=== PATIENT | male | born 1940 | race Caucasian/White ===

== ENCOUNTER 2017-11-17 13:21 | Inpatient (IN) | payer MEDICARE ==
[~2017-11-17] VITALS: Ht 182.9 cm; Wt 115.7 kg
[~2017-11-17 13:21] MED LIST: LASIX20 MG PO; NEURONTIN300 MG PO; Z RANITIDINE HCL PO; Z.0.ASPIRIN CHEW81 M; Z.0.BENTYL20 MG PO; Z.0.CRESTOR10 MG PO; Z.0.DIOVAN160 MG PO; Z.0.FLAGYL500 MG PO; Z.0.LASIX20 MG PO; Z.0.LEVAQUIN500 MG PO; Z.0.NEURONTIN300 MG PO; Z.0.PLAVIX75 MG PO; Z.0.SYNTHROID100 MCG PO; Z.0.TOPROL XL25 MG PO; [UNRECOGNIZED DRUG - OTHER]; [UNRECOGNIZED DRUG - OTHER] PO; [UNRECOGNIZED DRUG - OTHER] PO
--- OUTSIDE RECORDS SUMMARY | 2017-11-17 13:25 | XMS REPORT | Clinical Summary ---
Author Author [facility] Address Unknown Phone Unavailable Care Team Providers Care Electrical Worker Name Role Phone Brendan Vicente MD PCP Allergies No Known Allergies Current Medications Prescription Sig. Disp. Refills Start End Date Status Date pantoprazole (PROTONIX) Take 40 mg by mouth every 0 05/06/20 Active 40 MG EC tablet morning. 17 triamcinolone (KENALOG) Apply 1 application Active 0.1 % cream topically 2 (two) times a day. clobetasol 0.05 % lotion Apply 1 application Active topically as needed. folic acid 2.5 mg + B6 25 Take 1 tablet by mouth Active mg + B12 2 mg (FOLBIC) daily. 2.5-25-2 mg tablet levothyroxine (SYNTHROID, Take 100 mcg by mouth Active LEVOXYL) 100 mcg tablet daily. aspirin (ECOTRIN) 81 MG Take 81 mg by mouth 2 Active enteric coated tablet (two) times a day. AVOBENZONE/OCTOCRYLENE Apply 1 application Active (CETAPHIL DAILY FACIAL topically daily. TOP) salicylic acid (CLEARASIL Apply topically daily. Active DAILY CLEAR) 1 % pads, medicated coenzyme Q10 (COQ-10) 100 Take 200 mg by mouth Active mg capsule daily. emollient combination Apply 1 application Active no.77 (DERMEND) cream topically as needed. GLUC/CHND/OM3/DHA/EPA/FIS Take 1 tablet by mouth 2 Active H/STR (GLUCOSAMINE (two) times a day. CHONDROITIN PLUS ORAL) cholecalciferol, vitamin Take 1,000 Units by mouth Active D3, (VITAMIN D3) 1,000 daily. unit capsule amitriptyline (ELAVIL) 10 Take 10 mg by mouth Active MG tablet nightly. gabapentin (NEURONTIN) 10/18/19 Active 600 mg tablet 18 clopidogrel (PLAVIX) 75 04/22/20 Active mg tablet 17 diazePAM (VALIUM) 5 MG Take 5 mg by mouth once 1 04/26/20 Active tablet daily. 17 dicyclomine (BENTYL) 10 TAKE 1 CAPSULE BY MOUTH 2 05/24/20 Active MG capsule EVERY 4 TO 6 HOURS 17 NEEDED DULoxetine (CYMBALTA) 30 04/29/20 Active MG capsule 17 furosemide (LASIX) 20 mg 04/22/20 Active tablet 17 metoprolol succinate XL Take 50 mg by mouth once 3 03/19/20 Active (TOPROL-XL) 50 mg 24 hr daily. 17 tablet rosuvastatin (CRESTOR) 20 TAKE ONE TABLET BY MOUTH 2 03/19/20 Active MG tablet NIGHTLY AT BEDTIME RETURN 17 TO OFFICE FOR LABS sertraline (ZOLOFT) 25 MG TAKE 1 TABLET BY MOUTH 0 04/10/20 Active tablet EVERY DAY FOR 1 WEEK , 17 THEN TAKE 2 TABLETS BY MOUTH EVERY DAY tamsulosin (FLOMAX) 0.4 04/22/20 Active mg capsule,extended 17 release 24hr valsartan (DIOVAN) 160 MG Take 80 mg by mouth 2 2 04/22/20 Active tablet (two) times a day. 17 sucralfate (CARAFATE) 1 Take 1 g by mouth 3 Active gram tablet (three) times a day as needed. clopidogrel (PLAVIX) 75 04/22/20 11/16/19 Discontin mg tablet 17 18 ued dicyclomine (BENTYL) 10 20 mg. 2 05/13/20 05/23/20 Discontin MG capsule 17 17 ued furosemide (LASIX) 20 mg 04/22/20 11/16/19 Discontin tablet 17 18 ued sucralfate (CARAFATE) 1 Take 1 g by mouth as 11/16/19 Discontin gram tablet needed. 18 ued rosuvastatin (CRESTOR) 20 Take 20 mg by mouth 11/16/19 Discontin MG tablet daily. 18 ued valsartan (DIOVAN) 160 MG Take 160 mg by mouth 11/16/19 Discontin tablet daily. 18 ued tamsulosin (FLOMAX) 0.4 Take 0.4 mg by mouth 11/16/19 Discontin mg capsule,extended daily. 18 ued release 24hr sodium,potassium,mag Take 1 Bottle by mouth 1 Bottle 0 06/20/2001/31 sulfates (SUPREP BOWEL once for 1 dose. 17 17 PREP KIT) 17.5-3.13-1.6 gram recon soln hyoscyamine (LEVSIN/SL) Take 1 tablet (0.125 mg 60 tablet 3 08/13/19 09/13/19 0.125 mg SL tablet total) by mouth every 4 18 18 (four) hours as needed for cramping for up to 30 days. levothyroxine (SYNTHROID, 02/26/20 11/16/19 Discontin LEVOXYL) 125 mcg tablet 17 18 ued pantoprazole (PROTONIX) Take 40 mg by mouth every 0 05/06/20 Discontin 40 MG EC tablet morning. 17 18 ued dicyclomine (BENTYL) 10 Take 2 capsules (20 mg 120 capsule 0 06/01/20 07/01/20 MG capsule total) by mouth 2 (two) 17 17 times a day for 30 days. Active Problems Problem Noted Date Gastroesophageal reflux disease with esophagitis 08/13/2017 Lower abdominal pain 08/13/2017 Chest pain 06/01/2017 Encounters Date Type Specialty Care Team Description 11/15/2017 Office Visit Pain Medicine Isaak Zee MD Chronic pain syndrome (Primary Dx); Lumbar radiculopathy; Lumbar facet arthropathy; Osteoarthritis of spine with radiculopathy, lumbosacral region 08/29/2017 [facility] Radiology Azar De Jesus MD Chest pain Encounter 08/29/2017 Ancillary Radiology Azar De Jesus MD Chest pain Orders 08/13/2017 Office Visit Gastroenterology Baltazar Plunkett MD Gastroesophageal reflux disease with esophagitis (Primary Dx); Lower abdominal pain 06/26/2017 [facility] GastroenterBaltazar Cruz MD Chest pain , unspecified Encounter type (Primary Dx) 06/26/2017 Anesthesia Gastroenterology More Jones MD Event 06/26/2017 Procedure Pass Gastroenterology 06/26/2017 Surgery Gastroenterology Baltazar Plunkett MD EGD with Cold Bx AND COLONOSCOPY 06/25/2017 Telephone GastroenterOsei Dougherty LVN 06/24/2017 Telephone GastroenterOsei Dougherty LVN 06/20/2017 Orders Only Gastroenterology Osei Bass LVN 06/14/2017 Telephone Gastroenterology Baltazar Plunkett MD 06/11/2017 Telephone Gastroenterology Arianna Ricardo MD 06/11/2017 Documentation Gastroenterology Arianna Ricardo MD 06/11/2017 Telephone Gastroenterology Osei Bass LVN 06/10/2017 Hospital Radiology Baltazar Plunkett MD Encounter 06/10/2017 Telephone GastroenterBaltazar Cruz MD 05/31/2017 Emergency General Surgery José Miguel Bella MD Chest pain, unspecified - Tarun Rodríguez MD type (Primary Dx) 06/01/2017 05/28/2017 Hospital Radiology Baltazar Plunkett MD Lower abdominal pain Encounter 05/28/2017 Documentation Gastroenterology Lyndon Murphy Abdominal Pain MD Arianna 05/27/2017 Lab Lab Baltazar Plunkett MD Lower abdominal pain (Primary Dx); Loss of weight 05/24/2017 Telephone Gastroenterology Lyndon Murphy Lower abdominal pain MD Arianna (Primary Dx) 05/24/2017 Documentation Gastroenterology Lyndon Murphy abodminal pain MD Arianna 05/24/2017 Documentation Gastroenterbart Murphy Abdominal Pain MD Arianna 05/23/2017 Office Visit Gastroenterology Baltazar Plunkett MD Lower abdominal pain (Primary Dx); Weight loss after 11/16/2016 Family History Medical History Relation Name Comments Heart disease Father Heart disease Mother Relation Name Status Comments Father Mother Social History Tobacco Use Types Packs/Day Years Used Date Never Smoker Smokeless Tobacco: Never Used Alcohol Use Drinks/Week oz/Week Comments No Sex Assigned at Date Recorded Not on file Last Filed Vital Signs Vital Sign Reading Time Taken Blood Pressure 144/87 11/15/2017 1:18 PM CDT Pulse 48 11/15/2017 1:18 PM CDT Temperature 36.3 C (97.3 F) 06/26/2017 2:25 PM HORTICULTURE INSTRUCTOR Respiratory Rate 12 06/26/2017 3:15 PM HORTICULTURE INSTRUCTOR Oxygen Saturation 97% 06/26/2017 3:15 PM HORTICULTURE INSTRUCTOR Inhaled Oxygen - - Concentration Weight 118 kg (260 lb) 11/15/2017 1:18 PM CDT Height 182.9 cm (6') 11/15/2017 1:18 PM CDT Body Mass Index 35.26 11/15/2017 1:18 PM CDT Plan of Treatment Date Type Specialty Care Team Description 11/26/2017 Procedure visit Pain Medicine Isaak Zee MD [address] [facility] [address] [place] [address] Health Maintenance Due Date Last Done Comments SHINGRIX VACCINE (#1) 02/23/1990 ZOSTER VACCINE 2000 PNEUMOCOCCAL 02/23/2005 POLYSACCHARIDE VACCINE AGE 65 AND OVER PNEUMOCOCCAL-13 02/23/2005 INFLUENZA VACCINE 02/12/2018 Procedures Procedure Name Priority Date/Time Associated Diagnosis Comments EGD with Cold Bx AND 06/26/2017 Diarrhea COLONOSCOPY 1:00 PM HORTICULTURE INSTRUCTOR after 11/16/2016 Results * XR Chest 2 Vw (08/29/2017 1:30 PM) Specimen Performing Laboratory [facility] [address] [place] [address] Narrative EXAMINATION:XR CHEST 2 VW CLINICAL HISTORY:R07.9 Chest painunspecified COMPARISON:None. IMPRESSION: The cardiomediastinal silhouette and central vasculature are within normal limits. Atherosclerotic calcifications in the thoracic aorta which is tortuous. The lungs are clear. Degenerative changes in the spine. [facility]-[id number] Procedure Note Interface, Radiology Results Incoming - 08/29/2017 2:57 PM HORTICULTURE INSTRUCTOR EXAMINATION: XR CHEST 2 VW CLINICAL HISTORY: R07.9 Chest pain unspecified COMPARISON: None. IMPRESSION: The cardiomediastinal silhouette and central vasculature are within normal limits. Atherosclerotic calcifications in the thoracic aorta which is tortuous. The lungs are clear. Degenerative changes in the spine. [facility]-[id number] * Surgical pathology request (06/26/2017 2:45 PM) Component Value Ref Range Surgical pathology report See link below for PDF Lab Report Result status This is Final Report to [id number] Specimen Performing Laboratory [facility] DEPARTMENT OF PATHOLOGY AND GENOMIC MEDICINE [address] [place] [address] * CTA Abdomen W Wo Contrast (06/10/2017 10:32 AM) Specimen Performing Laboratory [facility] [address] [place] [address] Addenda Addendum by Raquel David MD on 06/20/2017 12:32 PM ADDENDUM #1 Multiple axial images were obtained from the lung bases to the iliac crests after the administration of intravenous contrast as per CT angiogram protocol. Coronal, sagittal, and 3-D reformats are submitted. Narrative EXAMINATION:CT ANGIOGRAM ABDOMEN W WO CONTRAST CLINICAL HISTORY:R10.30 Lower abdominal painunspecified, post prandial lower abdominal pain and weight loss COMPARISON:None. IMPRESSION: Lung bases are unremarkable. Decreased attenuation liver is compatible fatty infiltration. Gallbladder, pancreas, adrenal glands, and spleen are normal in appearance. A left renal cyst is noted. Right kidney is unremarkable. The abdominal aorta is tortuous. There is a gastric laparoscopic band. The celiac artery, superior mesenteric artery, and renal arteries are within normal limits. There is patent inferior mesenteric artery. The regional marrow is mildly osteopenic. Degenerative changes of spine are seen. [facility]-[id number] Procedure Note [facility], Radiology Results Incoming - 06/10/2017 2:22 PM HORTICULTURE INSTRUCTOR EXAMINATION: CT ANGIOGRAM ABDOMEN W WO CONTRAST CLINICAL HISTORY: R10.30 Lower abdominal pain unspecified, post prandial lower abdominal pain and weight loss COMPARISON: None. IMPRESSION: Lung bases are unremarkable. Decreased attenuation liver is compatible fatty infiltration. Gallbladder, pancreas, adrenal glands, and spleen are normal in appearance. A left renal cyst is noted. Right kidney is unremarkable. The abdominal aorta is tortuous. There is a gastric laparoscopic band. The celiac artery, superior mesenteric artery, and renal arteries are within normal limits. There is patent inferior mesenteric artery. The regional marrow is mildly osteopenic. Degenerative changes of spine are seen. [id number] * Troponin (06/01/2017 7:05 AM) Only the most recent of 3 results within the time period is included. Component Value Ref Range Troponin <0.300 0.000 - 0.300 ng/mL Comment: 0.30 - 1.49 ng/ml May indicate increased risk of acute coronary syndrome. >=1.5 ng/ml Consistent with acute myocardial infarction. The diagnostic value of a single normal or non-diagnostic result is questionable. Serial samples at 2-6 hour intervals are required to rule out acute myocardial injury. Specimen Performing Laboratory Plasma specimen [facility] DEPARTMENT OF PATHOLOGY AND GENOMIC MEDICINE [address] [place] [address] * ECG 12 lead (06/01/2017 6:04 AM) Only the most recent of 3 results within the time period is included. Component Value Ref Range Ventricular rate 71 Atrial rate 71 IL interval 198 QRSD interval 82 QT interval 450 QTC interval 489 P axis 1 61 QRS axis 1 8 T wave axis -2 EKG impression Sinus rhythm with occasional and consecutive premature ventricular complexes and fusion complexes-rt bundle branch block-Prolonged QT-^^ ^^ ACUTE [place] ^^ ^^-Abnormal ECG-In automated comparison with ECG of 01-JUN-2017 05:04,-fusion complexes are now present- Specimen Performing Laboratory [facility] MUSE [address] [place] [address] * ECG ED Preliminary Interpretation - NOT AN ORDER (06/01/2017 1:59 AM) Narrative José Miguel Bella MD 06/01/20171:59 AM ECG ED Preliminary Interpretation - Not an Order Performed by: JOSÉ MIGUEL BELLA Authorized by: JOSÉ MIGUEL BELLA ECG reviewed by ED Physician in the absence of a leather heel breaster: yes Rate: ECG rate:69 ECG rate assessment: normal Rhythm: Rhythm: sinus rhythm Ectopy: Ectopy: PVCs QRS: QRS axis:Normal Conduction: Conduction: normal ST segments: ST segments:Normal * Estimated GFR (06/01/2017 12:03 AM) Only the most recent of 2 results within the time period is included. Component Value Ref Range GFR Non Af Amer 45 (A) mL/min/1.73 m2 GFR Af Amer 55 (A) mL/min/1.73 m2 Comment: Chronic kidney disease: <60 mL/min/1.73m2 Kidney failure: <15 mL/min/1.73m2 The estimated GFR is calculated from the IDMS-traceable Modification of Diet in Renal Disease Equation. The accuracy of the calculation is poor when the creatinine is normal. Calculated values >90 mL/min/1.73m2 are not reported. This equation has not been validated in children (<18 years), women, the elderly (>70 years), or ethnic groups other than Caucasians and Americans. Specimen Performing Laboratory Plasma specimen [facility] DEPARTMENT OF PATHOLOGY AND [facility] [address] [place] [address] * Partial thromboplastin time, activated (06/01/2017 12:03 AM) Component Value Ref Range PTT 21.4 (L) 23.0 - 36.0 sec Comment: PTT therapeutic range for unfractionated heparin is 61.0-112.0 seconds which corresponds to Anti-Xa 0.3-0.7 U/ml. Specimen Performing Laboratory Blood [facility] PATHOLOGY AND [facility] [address] [place] [address] * Prothrombin time with INR (06/01/2017 12:03 AM) Component Value Ref Range Prothrombin time 14.3 12.0 - 15.0 sec INR 1.1 Comment: The International Normalized Ratio (INR) is a therapeutic monitoring tool for patients who are stable on oral anticoagulant therapy. An INR of 2.0-3.0 is suggested for deep vein thrombosis/pulmonary embolism. Specimen Performing Laboratory Blood [facility] PATHOLOGY AND [facility] [address] [place] [address] * Magnesium level (06/01/2017 12:03 AM) Component Value Ref Range Magnesium 1.7 1.6 - 2.4 mg/dL Specimen Performing Laboratory Plasma specimen [facility] PATHOLOGY AND [facility] [address] [place] [address] * Comprehensive metabolic panel (06/01/2017 12:03 AM) Only the most recent of 2 results within the time period is included. Component Value Ref Range Sodium 137 135 - 148 mEq/L Potassium 3.8 3.5 - 5.0 mEq/L Chloride 103 98 - 112 mEq/L CO2 22 (L) 24 - 31 mEq/L Anion gap 12 7 - 15 mEq/L Comment: Starting from October , anion gap calculation no longer incorporates potassium. Please note the change. BUN 23 8 - 23 mg/dL Creatinine 1.5 (H) 0.7 - 1.2 mg/dL Glucose 91 65 - 99 mg/dL Calcium 9.1 8.8 - 10.2 mg/dL Protein 6.6 6.3 - 8.3 g/dL Comment: [place] 4.6-7.0 g/dL 1 week 4.4-7.6 g/dL 7 months-1year 5.1-7.3 g/dL 1-2 years 5.6-7.5 g/dL >3 years 6.0-8.0 g/dL 18-150 6.3-8.3 g/dL Albumin 3.8 3.5 - 5.0 g/dL A/G ratio 1.4 0.7 - 3.8 Alkaline phosphatase 73 40 - 129 U/L AST 24 10 - 50 U/L ALT 12 5 - 50 U/L Total bilirubin 0.4 0.0 - 1.2 mg/dL Specimen Performing Laboratory Plasma specimen [facility] DEPARTMENT OF PATHOLOGY AND GENOMIC MEDICINE [id number] [place] [address] [place] [address] * XR Chest 1 Vw Portable (05/31/2017 11:20 PM) Specimen Performing Laboratory [facility] [address] [place] [address] Narrative EXAMINATION:XR CHEST 1 VW PORTABLE CLINICAL HISTORY:Chest Pain COMPARISON:None IMPRESSION: 1.The heart and pulmonary vasculature are within normal limits. 2.No infiltrate or effusion is demonstrated. 3.Left hemidiaphragm is slightly elevated. 4.There is no acute osseous pathology. [facility]-[id number] Procedure Note Interface, Radiology Results Incoming - 05/31/2017 11:51 PM HORTICULTURE INSTRUCTOR EXAMINATION: XR CHEST 1 VW PORTABLE CLINICAL HISTORY: Chest Pain COMPARISON: None IMPRESSION: 1. The heart and pulmonary vasculature are within normal limits. 2. No infiltrate or effusion is demonstrated. 3. Left hemidiaphragm is slightly elevated. 4. There is no acute osseous pathology. [id number] * Urinalysis screen and microscopy, with reflex to culture (05/31/2017 11:10 PM) Component Value Ref Range Specimen site Clean catch Color, UA Straw Appearance, UA Clear Specific gravity, UA 1.003 1.001 - 1.035 pH, UA 5.0 5.0 - 8.5 Protein, UA Negative Negative Glucose, UA Negative Negative Ketones, UA Negative Negative Bilirubin, UA Negative Negative Blood, UA Negative Negative Nitrite, UA Negative Negative Urobilinogen, UA Negative <2.0 Leukocyte esterase, UA Negative Negative WBC, UA 0-5 0 - 1 /HPF RBC, UA 0-5 0 - 1 /HPF Bacteria, UA None seen None seen Yeast, UA None seen Yeast with pseudohyphae, None seen UA Specimen Performing Laboratory Urine [facility] DEPARTMENT OF PATHOLOGY AND GENOMIC MEDICINE [address] [place] [address] * CBC with platelet and differential (05/31/2017 11:10 PM) Only the most recent of 2 results within the time period is included. Component Value Ref Range WBC 9.54 4.50 - 11.00 k/uL RBC 3.72 (L) 4.40 - 6.00 m/uL HGB 11.7 (L) 14.0 - 18.0 g/dL HCT 33.6 (L) 41.0 - 51.0 % MCV 90.3 82.0 - 100.0 fL MCH 31.5 27.0 - 34.0 pg MCHC 34.8 31.0 - 37.0 g/dL RDW - SD 46.8 37.0 - 55.0 fL MPV 11.3 8.8 - 13.2 fL Platelet count 153 150 - 400 k/uL Nucleated RBC 0.00 /100 WBC Neutrophils 65.8 39.0 - 69.0 % Lymphocytes 23.5 (L) 25.0 - 45.0 % Monocytes 6.2 0.0 - 10.0 % Eosinophils 3.9 0.0 - 5.0 % Basophils 0.4 0.0 - 1.0 % Immature granulocytes 0.2Comment: "Immature granulocytes" 0.0 - 1.0 % (promyelocytes, myelocytes, metamyelocytes) Specimen Performing Laboratory Blood [facility] DEPARTMENT OF PATHOLOGY AND [facility] [address] [place] [address] * Urine culture (05/31/2017 11:10 PM) Component Value Ref Range Urine culture SEE COMMENTComment: Bacteriuria screen negative. Specimen Performing Laboratory Urine [facility] DEPARTMENT OF PATHOLOGY AND [facility] [address] [place] [address] * B natriuretic peptide (05/31/2017 11:10 PM) Component Value Ref Range BNP 90 0 - 100 pg/mL Specimen Performing Laboratory Blood [facility] DEPARTMENT OF PATHOLOGY AND [facility] [address] [place] [address] * CT Head Wo Contrast (05/31/2017 10:56 PM) Specimen Performing Laboratory [address] [address] Narrative EXAMINATION: CT HEAD WO CONTRAST CLINICAL HISTORY: LUE tingling COMPARISON:None. TECHNIQUE: Noncontrast enhanced images of the brain were obtained from the skull base to the vertex. Both soft tissue and bone reconstruction algorithms were performed. CT scans are performed using radiation dose reduction techniques (iterative reconstruction and/or automated exposure control). Technical factors are evaluated and adjusted to ensure appropriate moderation of exposure. Automated dose management technology is applied to adjust radiation exposure while achieving a diagnostic quality image. FINDINGS: Mild generalized brain parenchymal volume loss. Nonspecific hypoattenuation of the supratentorial white matter, likely chronic microangiopathic changes. Mild cerebrovascular calcifications. The brain parenchyma is otherwise unremarkable. The barton-white matter differentiation is preserved. No evidence of acute intra or extra-axial hemorrhage, mass, mass effect or acute territorial infarction. There is no acute hydrocephalus. Basal cisterns are patent. No acute soft tissue hematoma or laceration. No skull fractures or aggressive bony lesions. Paranasal sinuses and mastoid air cells are clear. Orbits are normal. IMPRESSION: Involutional changes as detailed above with no acute intracranial abnormality. [facility]-[id number] Procedure Note Hm Interface, Radiology Results Incoming - 05/31/2017 11:10 PM HORTICULTURE INSTRUCTOR EXAMINATION: CT HEAD WO CONTRAST CLINICAL HISTORY: LUE tingling COMPARISON: None. TECHNIQUE: Noncontrast enhanced images of the brain were obtained from the skull base to the vertex. Both soft tissue and bone reconstruction algorithms were performed. CT scans are performed using radiation dose reduction techniques (iterative reconstruction and/or automated exposure control). Technical factors are evaluated and adjusted to ensure appropriate moderation of exposure. Automated dose management technology is applied to adjust radiation exposure while achieving a diagnostic quality image. FINDINGS: Mild generalized brain parenchymal volume loss. Nonspecific hypoattenuation of the supratentorial white matter, likely chronic microangiopathic changes. Mild cerebrovascular calcifications. The brain parenchyma is otherwise unremarkable. The barton-white matter differentiation is preserved. No evidence of acute intra or extra-axial hemorrhage, mass, mass effect or acute territorial infarction. There is no acute hydrocephalus. Basal cisterns are patent. No acute soft tissue hematoma or laceration. No skull fractures or aggressive bony lesions. Paranasal sinuses and mastoid air cells are clear. Orbits are normal. IMPRESSION: Involutional changes as detailed above with no acute intracranial abnormality. [id number] * C-reactive protein (05/27/2017 4:41 PM) Component Value Ref Range CRP 0.93 (H) 0.00 - 0.50 mg/dL Specimen Performing Laboratory Plasma specimen [facility] DEPARTMENT OF PATHOLOGY AND GENOMIC MEDICINE [address] [place] [address] * Thyroid stimulating hormone (05/27/2017 4:41 PM) Component Value Ref Range TSH 6.20 (H) 0.38 - 4.82 uIU/mL Specimen Performing Laboratory Plasma specimen [facility]PART[facility] OF PATHOLOGY AND GENOMIC MEDICINE [address] [place] [address] * Sedimentation rate (05/27/2017 4:25 PM) Component Value Ref Range Sedimentation rate 18 (H) 0 - 10 mm/hr Specimen Performing Laboratory Blood [facility]PARTMENT OF PATHOLOGY AND GENOMIC MEDICINE [address] [place] [address] after 11/16/2016 Insurance Payer Benefit Subscriber ID Type Phone Address Plan / Group MEDICARE MEDICARE xxxxxxxxxx Medicare [place] A [place] B AARP AARP xxxxxxxxx-xx Commercial SUPPLEMENT JAMES SHANKS Personal/F Self 1940 Home: [address] [place] [address]
--- OUTSIDE RECORDS SUMMARY | 2017-11-17 13:25 | XMS REPORT ---
Author Author [facility] Address Unknown Phone Unavailable Care Team Providers Care Flight Readiness Technician Name Role Phone DEBORAH SHAH Unavailable Unavailable Problems This patient has no known problems. Allergies, Adverse Reactions, Alerts This patient has no known allergies or adverse reactions. Medications This patient has no known medications. Results Test Description Test Time Test Comments Text Results Atomic Results Result Comments UPPER GI W/SMALL BOW [place] [address] Patient Name: KIMBERLY SHANKS MR #: [id number] : 1940 Age/Sex: 77/M Req #: [id number] Adm Physician: Ordered by: DEBORAH SHAH MD Report #: [id number] Location: DX Room/Bed: Procedure: [id number] DX/UPPER GI W/SMALL BOW Exam Date: 04/09/17 Exam Time: 914 REPORT STATUS: Signed PROCEDURE: UPPER GI W/SMALL BOW COMPARISON: KUB, 02/20/17; abdominal/pelvic CT, 03/19/17; abdominal MRI, INDICATIONS: ABDOMINAL PAIN FINDINGS: KUB: Preliminary supine views of the abdomen show a normal distribution of air in the small and large bowel. A lap band device is again seen projected at the GE junction with reservoir projected on the right mid abdomen. Appearance is unchanged from previous exam. Upper GI series: The patient ingested gas- forming crystals. There was no apparent difficulty ingesting barium in upright and prone positions. Esophagus: Normal distention and motility with no filling defect, stricture or mucosal edema. There was no hiatus hernia although in supine position moderate spontaneous gastroesophageal reflux was observed. Stomach: There is free flow of barium from the esophagus to the stomach through the lap band. The stomach is normally distensible with no filling defect or ulcer. Duodenum: The duodenal bulb is normally distensible with no ulcer. The duodenal loop is unremarkable. Small bowel: Barium traversed the small bowel to the colon in 1 hour 45 minutes. On the 25 minute image, the air filled cecum is seen in the right lower quadrant while on the 1 hour 45 minute image the cecum is in the right upper quadrant. There is no evidence for small bowel dilatation, mucosal edema or excess fluid content. No filling defect is seen. CONCLUSION: 1. Moderate spontaneous gastroesophageal reflux in supine position with no hiatus hernia. No esophageal stricture or mucosal edema. 2. A lap band device is present just below the GE junction. There is free flow of barium from the esophagus to the stomach through the lap in device. The stomach and duodenum otherwise unremarkable. 3. Normal transit time and appearance of the small bowel. There is noted to be a mobile cecum which is in the right lower quadrant on some images and right upper quadrant on others. Dictated by: Sven Khan M.D. on 04/09/2017 at 12:46 Electronically approved by: Sven Khan M.D. on 04/09/2017 at 12:46 Dictated By: SVEN KHAN MD 1246 Transcribed By: RUPA on 04/09/17 1246 COPY TO: DEBORAH SHAH MD MRI PELVIS [place] [address] Patient Name: KIMBERLY SHANKS MR #: [id number] : 1940 Age/Sex: 77/M Req #: [id number] Adm Physician: Ordered by: DEBORAH SHAH MD Report #: [id number] Location: MRI Room/Bed: Procedure: [id number] MRI/ MRI PELVIS WOW Exam Date: 03/29/17 Exam Time: 1020 REPORT STATUS: Signed MRI ABDOMEN AND PELVIS Indication: Abdominal pain/periumbilical pain/gangrene Technique: Multiplanar, multi- sequential MRI was performed both before and after the intravenous administration of 10 cc of gadolinium utilizing a general abdomen protocol. Comparison: CT abdomen/pelvis 03/19/2017 Findings: Technical limitations: Laparoscopic band reservoir in the anterior right abdominal wall and its tubing in the anterior left hemiabdomen cause blooming artifact. Diffusion-weighted images of the abdomen and postcontrast images of the pelvis are motion degraded. In addition, postcontrast images of the pelvis are not fat-suppressed. Liver: The liver measures 18 mm in craniocaudal dimension. It is normal in T1 and T2 signal. No evidence of mass. Gallbladder: Present without evidence of gallstone. No gallbladder wall thickening. Biliary tree: No intrahepatic or extra hepatic biliary ductal dilatation. The common bile duct measures 4 mm and tapers as it approaches the ampulla. Pancreas: Normal T1 and T2 signal without mass or ductal dilatation. Spleen: Normal size and signal without mass Adrenal glands : No evidence for mass. Kidneys: No hydronephrosis. A cyst in the upper pole of the left kidney measures 4.0 x 4.3 cm. Lymph nodes: No enlarged abdominal or periaortic lymph nodes. Vasculature: The abdominal aorta is ectatic but not aneurysmally dilated. Stomach: Laparoscopic band is in appropriate alignment. The stomach is not dilated. No surrounding fluid collection. Bowel: The small bowel and large bowel are normal in diameter with normal wall thickness. No diverticula are appreciated. The appendix is not visualized. Bladder: Well-distended and appears normal. There is normal zonal anatomy of the prostate gland. Seminal vesicles are normal. No free fluid or fluid collection. Vascular structures: Normal in morphology. Soft tissues: No evidence of umbilical or inguinal hernia. Muscle bundles are symmetric in size and attenuation without focal lesion. No fluid surrounding the laparoscopic band reservoir. The umbilicus is normal. Lung bases: Clear. Bones: Moderate degenerative changes of the lower lumbar spine are redemonstrated. Multiple posterior disc bulges extend into the spinal canal resulting in mild to moderate spinal canal stenosis. There is stable grade 1 anterolisthesis of L5 on S1. Several perineural cysts are present in the sacrum. There are no focal osseous lesions. IMPRESSION: 1. No abdominal wall hernia, mass, or other abnormality to explain pain. 2. Laparoscopic gastric band and reservoir are normal in appearance. 3. Unilocular cyst in the left kidney. 4. Degenerative changes of the lower lumbar spine as described above. Signed by: Dr. Kristen Murphy MD on 1:13 PM Dictated By: KRISTEN MURPHY MD 131 Transcribed By: SAMREEN on 03/29/17 131 COPY TO: DEBORAH SHAH MD MRI ABDOMEN WOW [place] [address] Patient Name: KIMBERLY SHANKS MR #: [id number] : 1940 Age/Sex: 77/M Req #: [id number] [facility] [place] Physician: Ordered by: DEBORAH SHAH MD Report #: [id number] Location: MRI Room/Bed: Procedure: [id number] MRI/ MRI ABDOMEN WOW Exam Date: 03/29/17 Exam Time: 1020 REPORT STATUS: Signed MRI ABDOMEN AND PELVIS Indication: Abdominal pain/periumbilical pain/gangrene Technique: Multiplanar, multi- sequential MRI was performed both before and after the intravenous administration of 10 cc of gadolinium utilizing a general abdomen protocol. Comparison: CT abdomen/pelvis 03/19/2017 Findings: Technical limitations: Laparoscopic band reservoir in the anterior right abdominal wall and its tubing in the anterior left hemiabdomen cause blooming artifact. Diffusion-weighted images of the abdomen and postcontrast images of the pelvis are motion degraded. In addition, postcontrast images of the pelvis are not fat-suppressed. Liver: The liver measures 18 mm in craniocaudal dimension. It is normal in T1 and T2 signal. No evidence of mass. Gallbladder: Present without evidence of gallstone. No gallbladder wall thickening. Biliary tree: No intrahepatic or extra hepatic biliary ductal dilatation. The common bile duct measures 4 mm and tapers as it approaches the ampulla. Pancreas: Normal T1 and T2 signal without mass or ductal dilatation. Spleen: Normal size and signal without mass Adrenal glands : No evidence for mass. Kidneys: No hydronephrosis. A cyst in the upper pole of the left kidney measures 4.0 x 4.3 cm. Lymph nodes: No enlarged abdominal or periaortic lymph nodes. Vasculature: The abdominal aorta is ectatic but not aneurysmally dilated. Stomach: Laparoscopic band is in appropriate alignment. The stomach is not dilated. No surrounding fluid collection. Bowel: The small bowel and large bowel are normal in diameter with normal wall thickness. No diverticula are appreciated. The appendix is not visualized. Bladder: Well-distended and appears normal. There is normal zonal anatomy of the prostate gland. Seminal vesicles are normal. No free fluid or fluid collection. Vascular structures: Normal in morphology. Soft tissues: No evidence of umbilical or inguinal hernia. Muscle bundles are symmetric in size and attenuation without focal lesion. No fluid surrounding the laparoscopic band reservoir. The umbilicus is normal. Lung bases: Clear. Bones: Moderate degenerative changes of the lower lumbar spine are redemonstrated. Multiple posterior disc bulges extend into the spinal canal resulting in mild to moderate spinal canal stenosis. There is stable grade 1 anterolisthesis of L5 on S1. Several perineural cysts are present in the sacrum. There are no focal osseous lesions. IMPRESSION: 1. No abdominal wall hernia, mass, or other abnormality to explain pain. 2. Laparoscopic gastric band and reservoir are normal in appearance. 3. Unilocular cyst in the left kidney. 4. Degenerative changes of the lower lumbar spine as described above. Signed by: Dr. Kristen Murphy MD on 1:13 PM Dictated By: KRISTEN MURPHY MD 131 Transcribed By: SAMREEN on 03/29/173 COPY TO: DEBORAH SHAH MD CT ABDOMEN/PELVIS WO [place] [address] Patient Name: KIMBERLY SHANKS MR #: [id number] : 1940 Age/Sex: 77/M Req #: [id number] Adm Physician: Ordered by: DEBORAH SHAH MD Report #: [id number] Location: CT Room/Bed: Procedure: [id number] CT/CT ABDOMEN/PELVIS WO Exam Date: 03/19/17 Exam Time: 1999 REPORT STATUS: Signed EXAM: CT of the abdomen and pelvis WITHOUT contrast HISTORY: Abdominal pain, hernia, periumbilical pain, impaired renal function, history of a hernia in 2000 COMPARISON: None available. TECHNIQUE: The abdomen and pelvis were scanned utilizing a multidetector helical scanner. Coronal and sagittal reformats are available. PROTOCOL: Routine IV CONTRAST: None, which limits sensitivity and specificity of evaluation of the soft tissues and vascular structures. No intravenous contrast, given the impaired renal function and no prior lab values for comparison. ORAL CONTRAST: None, which limits sensitivity and specificity of evaluation of the bowel. RADIATION DOSE: Total DLP: 843.77 mGy*cm Estimated effective dose: (DLP x 0.015 x size factor) COMPLICATIONS: None FINDINGS: Lap band device. LOWER THORAX: Unremarkable. HEPATOBILIARY: No definite focal hepatic lesions. No biliary ductal dilatation. The gallbladder is unremarkable. SPLEEN: No splenomegaly. PANCREAS: No focal masses or ductal dilatation. Diffuse parenchymal atrophy. ADRENALS: No discrete adrenal nodule. KIDNEYS/URETERS : No hydronephrosis or radiopaque stones. Bilateral cortical atrophy. A 4.6 cm partially exophytic fluid density at the superior pole of the left kidney, compatible with a cyst. PELVIC ORGANS/BLADDER: The urinary bladder is partially decompressed. PERITONEUM / RETROPERITONEUM: No free air or fluid. GI TRACT: On limited evaluation of the gastrointestinal tract, no dilation or wall thickening identified. Incidentally, the cecum is in the right upper quadrant of the abdomen. No pericecal inflammatory changes to suggest acute appendicitis. LYMPH NODES: No pathologically enlarged lymph nodes. VESSELS: Scattered atherosclerotic vascular calcifications, including the coronary arteries. BONES: No aggressive osseous lesion or acute fracture. Multilevel moderate to severe degenerative changes of the visualized spine. Pars interarticularis defects at L5 with minimal associated anterolisthesis. SOFT TISSUES: No evidence of an umbilical or periumbilical hernia. IMPRESSION: 1. No umbilical or periumbilical hernia. 2. The cecum is in the right upper quadrant the abdomen, this may be an incidental finding or can be seen in the setting of mobile caecum syndrome. 3. Moderate to severe degenerative changes of the spine and L5 spondylolysis with associated grade 1 spondylolisthesis. Signed by: Dr. Kiana Mcdonald M.D. on 8:43 PM Dictated By: KIANA MCDONALD DO 42 Transcribed By: SAMREEN on 03/19/172042 COPY TO: DEBORAH SHAH MD
[2017-11-17] MEDS ORDERED: VANCOMYCIN 1GM/NS 250 ML 250 ML IV STA (14:35)
[2017-11-17] MEDS ORDERED: SODIUM CHLORIDE 0.9% 1000ML 1,000 ML IV STA (14:35)
[2017-11-17] MEDS ORDERED: CEFEPIME HCL 1 GM VIAL IV ONE (14:45)
[2017-11-17 15:33] LABS: BASOPHILS % 0.2 % (0.0-1.0); EOSINOPHILS % 0.1 % (0.0-6.0); HEMATOCRIT 39.5 % (38.2-49.6); HEMOGLOBIN 13.5 g/dL (14.0-18.0); LYMPHOCYTES # (AUTO) 1.2 (1.0-3.2); LYMPHOCYTES % 5.3 % (18.0-39.1); MEAN CORPUSCULAR HEMOGLOBIN 30.4 pg (28-32); MEAN CORPUSCULAR HGB CONC 34.2 g/dL (31-35); MONOCYTES # (AUTO) 0.7 (0.2-0.8); MONOCYTES % 3.1 % (4.4-11.3); NEUTROPHILS # (AUTO) 20.7 (2.1-6.9); NEUTROPHILS % 90.2 % (38.7-80.0); PLATELET COUNT 127 x10e3/uL (140-360); RED BLOOD COUNT 4.44 x10e6/uL (4.3-5.7); RED CELL DISTRIBUTION WIDTH 14.5 % (11.7-14.4)
[2017-11-17 15:42] LABS: INR 1.42; PROTHROMBIN TIME 16.3 seconds (11.9-14.5)
[2017-11-17 15:43] LABS: PARTIAL THROMBOPLASTIN TIME 35.1 seconds (23.8-35.5)
[2017-11-17 15:52] LABS: ALBUMIN 3.3 g/dL (3.5-5.0); ALBUMIN/GLOBULIN RATIO 0.8 (0.8-2.0); ANION GAP 12.3 mmol/L (8-16); CALCIUM 9.5 mg/dL (8.4-10.2); CREATININE, SERUM 2.02 mg/dL (0.72-1.25); POTASSIUM 3.3 mmol/L (3.5-5.1)
[2017-11-17] MEDS ORDERED: VANCOMYCIN 1GM/NS 250 ML 250 ML IV ONE ×2 (16:45→21:00)
[2017-11-17] MEDS ORDERED: SODIUM CHLORIDE FLUSH 10 ML SYR INJ PRN (16:45)
[2017-11-17 16:48] LABS: BILIRUBIN,URINE NEGATIVE (NEGATIVE); CLARITY,URINE CLEAR (CLEAR); COLOR,URINE YELLOW (YELLOW); KETONES,URINE NEGATIVE (NEGATIVE); LEUKOCYTE ESTERASE ,URINE NEGATIVE (NEGATIVE); NITRITE,URINE NEGATIVE (NEGATIVE); PROTEIN,URINE DIPSTICK NEGATIVE (NEGATIVE); URINE UROBILINOGEN 1 mg/dL (0.2 - 1)
[2017-11-17 16:56] LABS: EPITHELIAL CELLS,URINE RARE /LPF; RBC,URINE 0-5 /HPF (0-5)
--- OUTSIDE RECORDS SUMMARY | 2017-11-17 17:06 | XMS REPORT | Clinical Summary ---
Author Author [facility] [place] [facility] Address Unknown Phone Unavailable Care Team Providers Care Bass Fisher Name Role Phone Brendan Vicente MD PCP [...] of spine with radiculopathy, lumbosacral region 08/29/2017 [facility] Radiology Azar De Jesus MD Chest pain Encounter 08/29/2017 Ancillary Radiology Azar De Jesus MD Chest pain Orders 08/13/2017 Office Visit Gastroenterology Baltazar Plunkett MD Gastroesophageal reflux disease with esophagitis (Primary Dx); Lower abdominal pain 06/26/2017 [facility] GastroenterBaltazar Cruz MD Chest pain , [...] 36.3 C (97.3 F) 06/26/2017 2:25 PM TWISTING OPERATOR Respiratory Rate 12 06/26/2017 3:15 PM TWISTING OPERATOR Oxygen Saturation 97% 06/26/2017 3:15 PM TWISTING OPERATOR Inhaled Oxygen - - Concentration Weight 118 kg (260 lb) 11/15/2017 1:18 PM CDT Height 182.9 cm (6') 11/15/2017 1:18 PM CDT Body Mass Index 35.26 11/15/2017 1:18 PM CDT Plan of Treatment Date Type Specialty Care Team Description 11/26/2017 Procedure visit Pain Medicine Isaak Zee MD [address] [facility] [address] [place] [address] Health Maintenance Due Date Last Done Comments SHINGRIX VACCINE (#1) 02/23/1990 ZOSTER VACCINE 2000 PNEUMOCOCCAL 02/23/2005 POLYSACCHARIDE VACCINE AGE 65 AND OVER PNEUMOCOCCAL-13 02/23/2005 INFLUENZA VACCINE 02/12/2018 Procedures Procedure Name Priority Date/Time Associated Diagnosis Comments EGD with Cold Bx AND 06/26/2017 Diarrhea COLONOSCOPY 1:00 PM TWISTING OPERATOR after 11/16/2016 Results * XR Chest 2 Vw (08/29/2017 1:30 PM) [facility]imen [facility] [address] [place] [address] Narrative EXAMINATION:XR CHEST 2 VW CLINICAL HISTORY:R07.9 Chest painunspecified COMPARISON:None. IMPRESSION: The cardiomediastinal silhouette and central vasculature are within normal limits. Atherosclerotic calcifications in the thoracic aorta which is tortuous. The lungs are clear. Degenerative changes in the spine. [id number] Procedure Note Interface, Radiology Results Incoming - 08/29/2017 2:57 PM TWISTING OPERATOR EXAMINATION: XR CHEST 2 VW CLINICAL HISTORY: R07.9 Chest pain unspecified COMPARISON: None. IMPRESSION: The cardiomediastinal silhouette and central vasculature are within normal limits. Atherosclerotic calcifications in the thoracic aorta which is tortuous. The lungs are clear. Degenerative changes in the spine. [id number] * Surgical pathology request (06/26/2017 2:45 PM) Component Value Ref Range Surgical pathology report See link below for PDF Lab Report Result status This is Final Report to [id number] Specimen Performing Laboratory [facility] DEPARTMENT OF PATHOLOGY AND GENOMIC MEDICINE [address] [place] [address] * CTA Abdomen W Wo Contrast (06/10/2017 10:32 AM) Specimen Performing Laboratory [facility] [address] [place] [address] Addenda Addendum by Raquel David MD on [...] osteopenic. Degenerative changes of spine are seen. [id number] Procedure Note [facility], Radiology Results Incoming - 06/10/2017 2:22 PM TWISTING OPERATOR EXAMINATION: CT ANGIOGRAM ABDOMEN W WO CONTRAST [...] osteopenic. Degenerative changes of spine are seen. [id number] * Troponin (06/01/2017 7:05 AM) Only the [...] myocardial injury. Specimen Performing Laboratory Plasma specimen [facility] DEPARTMENT OF PATHOLOGY AND GENOMIC MEDICINE [address] [place] [address] * ECG 12 lead (06/01/2017 6:04 AM) Only the most recent of 3 results within the time period is included. Component Value Ref Range Ventricular rate 71 Atrial rate 71 WA interval 198 QRSD interval 82 QT interval 450 QTC interval 489 P axis 1 61 QRS axis 1 8 T wave axis -2 EKG impression Sinus rhythm with occasional and consecutive premature ventricular complexes and fusion complexes-rt bundle branch block-Prolonged QT-^^ ^^ ACUTE [place] ^^ ^^-Abnormal ECG-In automated comparison with ECG of 01-JUN-2017 05:04,-fusion complexes are now present- Specimen Performing Laboratory [facility] MUSE [address] [place] [address] * ECG ED Preliminary Interpretation - NOT AN ORDER (06/01/2017 1:59 AM) Narrative José Miguel Bella MD 06/01/20171:59 AM ECG ED Preliminary Interpretation - Not an Order Performed by: JOSÉ MIGUEL BELLA Authorized by: JOSÉ MIGUEL BELLA ECG reviewed by ED Physician in the absence of a metal annealer: yes Rate: ECG rate:69 ECG rate assessment: [...] Plasma specimen [facility] DEPARTMENT OF PATHOLOGY AND [facility] [address] [place] [address] * Partial thromboplastin time, activated (06/01/2017 12:03 AM) Component Value Ref Range PTT 21.4 (L) 23.0 - 36.0 sec Comment: PTT therapeutic range for unfractionated heparin is 61.0-112.0 seconds which corresponds to Anti-Xa 0.3-0.7 U/ml. Specimen Performing Laboratory Blood [facility] PATHOLOGY AND [facility] [address] [place] [address] * Prothrombin time with INR (06/01/2017 12:03 AM) Component Value Ref Range Prothrombin time 14.3 12.0 - 15.0 sec INR 1.1 Comment: The International Normalized Ratio (INR) is a therapeutic monitoring tool for patients who are stable on oral anticoagulant therapy. An INR of 2.0-3.0 is suggested for deep vein thrombosis/pulmonary embolism. Specimen Performing Laboratory Blood [facility] PATHOLOGY AND [facility] [address] [place] [address] * Magnesium level (06/01/2017 12:03 AM) Component Value Ref Range Magnesium 1.7 1.6 - 2.4 mg/dL Specimen Performing Laboratory Plasma specimen [facility] PATHOLOGY AND [facility] [address] [place] [address] * Comprehensive metabolic panel (06/01/2017 12:03 AM) [...] Protein 6.6 6.3 - 8.3 g/dL Comment: [place] 4.6-7.0 g/dL 1 week 4.4-7.6 g/dL 7 [...] 1.2 mg/dL Specimen Performing Laboratory Plasma specimen [facility] DEPARTMENT OF PATHOLOGY AND GENOMIC MEDICINE [id number] [place] [address] [place] [address] * XR Chest 1 Vw Portable (05/31/2017 11:20 PM) Specimen Performing Laboratory [facility] [address] [place] [address] Narrative EXAMINATION:XR CHEST 1 VW PORTABLE CLINICAL HISTORY:Chest Pain COMPARISON:None IMPRESSION: 1.The heart and pulmonary vasculature are within normal limits. 2.No infiltrate or effusion is demonstrated. 3.Left hemidiaphragm is slightly elevated. 4.There is no acute osseous pathology. [id number] Procedure Note Interface, Radiology Results Incoming - 05/31/2017 11:51 PM TWISTING OPERATOR EXAMINATION: XR CHEST 1 VW PORTABLE CLINICAL HISTORY: Chest Pain COMPARISON: None IMPRESSION: 1. The heart and pulmonary vasculature are within normal limits. 2. No infiltrate or effusion is demonstrated. 3. Left hemidiaphragm is slightly elevated. 4. There is no acute osseous pathology. [id number] * Urinalysis screen and microscopy, with reflex [...] None seen UA Specimen Performing Laboratory Urine [facility] DEPARTMENT OF PATHOLOGY AND GENOMIC MEDICINE [address] [place] [address] * CBC with platelet and differential (05/31/2017 [...] (promyelocytes, myelocytes, metamyelocytes) Specimen Performing Laboratory Blood [facility] DEPARTMENT OF PATHOLOGY AND [facility] [address] [place] [address] * Urine culture (05/31/2017 11:10 PM) Component Value Ref Range Urine culture SEE COMMENTComment: Bacteriuria screen negative. Specimen Performing Laboratory Urine [facility] DEPARTMENT OF PATHOLOGY AND [facility] [address] [place] [address] * B natriuretic peptide (05/31/2017 11:10 PM) Component Value Ref Range BNP 90 0 - 100 pg/mL Specimen Performing Laboratory Blood [facility] DEPARTMENT OF PATHOLOGY AND [facility] [address] [place] [address] * CT Head Wo Contrast (05/31/2017 10:56 PM) Specimen Performing Laboratory [address] [address] Narrative EXAMINATION: CT HEAD WO CONTRAST CLINICAL [...] detailed above with no acute intracranial abnormality. [id number] Procedure Note Hm Interface, Radiology Results Incoming - 05/31/2017 11:10 PM TWISTING OPERATOR EXAMINATION: CT HEAD WO CONTRAST CLINICAL HISTORY: [...] detailed above with no acute intracranial abnormality. [id number] * C-reactive protein (05/27/2017 4:41 PM) Component Value Ref Range CRP 0.93 (H) 0.00 - 0.50 mg/dL Specimen Performing Laboratory Plasma specimen [facility] DEPARTMENT OF PATHOLOGY AND GENOMIC MEDICINE [address] [place] [address] * Thyroid stimulating hormone (05/27/2017 4:41 PM) Component Value Ref Range TSH 6.20 (H) 0.38 - 4.82 uIU/mL Specimen Performing Laboratory Plasma specimen [facility] DEPARTMENT OF PATHOLOGY AND GENOMIC MEDICINE [address] [place] [address] * Sedimentation rate (05/27/2017 4:25 PM) Component Value Ref Range Sedimentation rate 18 (H) 0 - 10 mm/hr Specimen Performing Laboratory Blood [facility] DEPARTMENT OF PATHOLOGY AND GENOMIC MEDICINE [address] [place] [address] after 11/16/2016 Insurance Payer Benefit Subscriber ID Type Phone Address Plan / Group MEDICARE MEDICARE xxxxxxxxxx Medicare [place], [place] PART A AND B AARP AARP xxxxxxxxx-xx Commercial SUPPLEMENT JAMES SHANKS Personal/F Self 1940 Home: [address] [place] [address]
[2017-11-17 17:27] LABS: BAND NEUTROPHILS % (MANUAL) 16 %; LYMPHOCYTES % (MANUAL) 10 % (19-48); MONOCYTES % (MANUAL) 3 % (3.4-9.0); NEUTROPHILS % (MANUAL) 71 % (40-74)
[2017-11-17 17:28] LABS: PLATELET MORPHOLOGY COMMENT NORMAL
[2017-11-17 17:29] LABS: PLATELET ESTIMATE SLIGHTLY DECREASED; RBC MORPHOLOGY COMMENT NORMAL
[2017-11-17 18:06] VITALS: BP 113/68
[2017-11-17 18:58] VITALS: BP 113/68
[2017-11-17 20:00] VITALS: BP 121/63
[2017-11-17] MEDS: ATORVASTATIN 20 MG TAB PO SCH (21:41)
[2017-11-17] MEDS ORDERED: POTASSIUM CHLORIDE 20 MEQ TAB CR PO STA (21:43)
[2017-11-17] MEDS ORDERED: VANCOMYCIN 1GM/NS 250 ML 250 ML IV SCH (21:45)
[2017-11-17] MEDS: GABAPENTIN 300 MG CAP PO SCH (21:57)
[2017-11-17] MEDS ORDERED: CEFEPIME HCL 1 GM VIAL IV SCH (22:00)
--- NOTE | 2017-11-17 23:02 | History and Physical ---
CHIEF COMPLAINT: Left leg pain, left leg swelling and redness since 2 days. HPI: This is a 77-year-old male with the past medical history of hypertension, mild renal insufficiency, CHF, was in usual state of health until 2 days ago he started developing left leg swelling and pain and redness. In ER, they did a venous Doppler, was negative. No chest pain, no shortness of breath, no fever. No abdominal pain, no nausea, no vomiting. No diarrhea, no constipation. ALLERGIES: NO KNOWN DRUG ALLERGIES. PAST MEDICAL HISTORY 1. Hypertension. 2. Chronic renal insufficiency. 3. Hypertension. 4. Hyperlipidemia. 5. Neuropathy. 6. Hypothyroidism. PAST SURGICAL HISTORY: Left heel spur surgery. SOCIAL HISTORY: Patient . Lives with his . HABIT: Denies smoking. Denies alcohol use. Denies illicit drug use. MEDICATIONS LIST: Attached. REVIEW OF SYSTEMS GENERAL: Generalized fatigue and weakness. HEENT: No diplopia. No blurring of vision. CARDIOPULMONARY: No chest pain, no shortness of breath. ALIMENTARY SYSTEM: No nausea, no vomiting, no diarrhea, no constipation. GENITOURINARY: No hematuria, dysuria. MUSCULOSKELETAL: No joint pain. CENTRAL NERVOUS SYSTEM: No focal weakness, no seizure. PHYSICAL EXAMINATION GENERAL: A 77-year-old male, who is alert, oriented times 3. No gross deficits. VITAL SIGNS: Temperature 99.2, pulse 93, respiratory rate 16, blood pressure 132/67. HEENT: Head atraumatic, normocephalic. Pupils bilaterally equal, reactive to light. Extraocular muscles intact. NECK: Supple. No JVD, no carotid bruit. LUNGS: Clear to auscultation and percussion bilaterally. No additional sounds. HEART: S1, S2. Regular rate and rhythm. No S3, no S4. No murmur. ABDOMEN: Soft, obese, nontender. No guarding, no rigidity. EXTREMITIES: Left leg redness below knee. Left leg swelling below knee. No calf tenderness. Peripheral pulses +1. VERIFICATION CLERK: Grossly nonfocal. Right leg normal. LABS: White count 22.93, hemoglobin 13.5, hematocrit 39.5, platelet is 127,000. Sodium 132, potassium 3.3, BUN 30, creatinine 2.02. ASSESSMENT 1. Left leg cellulitis. 2. Hypertension. 3. Hyperlipidemia. 4. Chronic renal insufficiency. 5. Neuropathy. 6. Hyperthyroidism. 7. Congestive heart failure. PLAN 1. Admit to medical floor. 2. IV vancomycin 1 g daily. 3. IV cefepime 1 g IV q.12. 4. Continue home medicine. 5. KCl 20 mEq p.o. times 1. 6. BMP in the morning. 7. ID consult, Dr. Blanc. Case discussed with patient about condition, prognosis. Job#: [id number] CQ
[2017-11-18] VITALS: BP 109/55
[2017-11-18 04:00] VITALS: BP 99/60
[2017-11-18] MEDS ORDERED: VANCOMYCIN 1GM/NS 250 ML 250 ML IV ONE (04:00)
[2017-11-18] MEDS ORDERED: CEFEPIME HCL 1 GM VIAL IV SCH (04:00)
[2017-11-18 06:51] LABS: BASOPHILS % 0.3 % (0.0-1.0); EOSINOPHILS # (AUTO) 0.1 (0.0-0.4); EOSINOPHILS % 0.8 % (0.0-6.0); HEMATOCRIT 36.1 % (38.2-49.6); HEMOGLOBIN 11.9 g/dL (14.0-18.0); LYMPHOCYTES # (AUTO) 0.9 (1.0-3.2); LYMPHOCYTES % 5.4 % (18.0-39.1); MEAN CORPUSCULAR VOLUME 90.9 fL (81-99); MONOCYTES # (AUTO) 0.5 (0.2-0.8); MONOCYTES % 3.3 % (4.4-11.3); NEUTROPHILS # (AUTO) 14.2 (2.1-6.9); PLATELET COUNT 123 x10e3/uL (140-360); RED BLOOD COUNT 3.97 x10e6/uL (4.3-5.7); RED CELL DISTRIBUTION WIDTH 14.6 % (11.7-14.4)
[2017-11-18 07:27] LABS: ALBUMIN 2.8 g/dL (3.5-5.0); ALBUMIN/GLOBULIN RATIO 0.8 (0.8-2.0); ANION GAP 13.1 mmol/L (8-16); CREATININE, SERUM 1.66 mg/dL (0.72-1.25); POTASSIUM 4.1 mmol/L (3.5-5.1)
[2017-11-18] MEDS: DICYCLOMINE HCL 20 MG TAB PO SCH ×6 (07:30→22:38)
[2017-11-18 07:41] VITALS: BP 107/58
[2017-11-18] MEDS ORDERED: FUROSEMIDE 20 MG TAB PO SCH (09:00)
[2017-11-18] MEDS: CLOPIDOGREL BISULFATE 75 MG TAB PO SCH (09:00)
[2017-11-18] MEDS ORDERED: ASPIRIN 81 MG CHEW TAB PO SCH (09:00)
[2017-11-18] MEDS ORDERED: ROSUVASTATIN CALCIUM 10 MG PO SCH (09:00)
[2017-11-18] MEDS: METOPROLOL SUCCINATE 25 MG TAB XL PO SCH (09:00)
[2017-11-18] MEDS: LEVOTHYROXINE SODIUM 100 MCG TAB PO SCH (09:00)
[2017-11-18] MEDS: GABAPENTIN 300 MG CAP PO SCH ×2 (09:00→21:30)
[2017-11-18] MEDS: DOCUSATE SODIUM 100 MG CAP PO SCH ×2 (09:44→16:28)
[2017-11-18] MEDS: POLYETHYLENE GLYCOL 3350 17 GM PACK PO SCH (09:44)
[2017-11-18 11:49] VITALS: BP 112/55
--- NOTE | 2017-11-18 14:50 | Consultation ---
DATE OF CONSULTATION: November 18, 2017 REASON FOR CONSULTATION: Cellulitis of the left leg. HISTORY OF PRESENT ILLNESS: This patient is very pleasant and known to me from previous admission. He is a 77-year-old white male with a history of hypertension, chronic kidney disease, hyperlipidemia, neuropathy, hypothyroidism, left foot infection before with lymphedema. The patient comes in with redness and swelling of his leg. He called me Saturday and said his left leg is red and swollen. He was said to have fever and chills. Advised to go to the emergency room. In the emergency room, he was seen and examined. I also contacted the ER physician, who started him on antibiotic. The patient was admitted in the evening. I did see him early in the morning on the next day. He is doing much better. He said his redness is subsiding. This patient has history of lymphedema before. Last time, it took some time on IV antibiotic, and he did not have an IV access. He preferred to have a central line. This patient is currently doing well. Has no complaints except pain in the leg with redness and swelling. He thinks it started after he hit his leg and had an ulcer which crusted with old blood on it. He is currently lying in bed comfortably. There is no fever and no chills at the present time although when he first came he felt feverish and was not feeling well. PAST MEDICAL HISTORY: Hypertension, chronic kidney disease stage 3 to 4, hypertension, hyperlipidemia, neuropathy, hypothyroidism. PAST SURGICAL HISTORY: Left heel surgery. ALLERGIES: NKA. SOCIAL HISTORY: There is no smoking, drug abuse or alcohol abuse. FAMILY HISTORY: Hypertension. REVIEW OF SYSTEMS: Currently: HEENT: There is no headache. There are no visual changes. GI: There is no nausea, no vomiting, no diarrhea. CARDIAC: There is no arrhythmia. NEURO: No seizure activity. SKIN: There are no other rashes. LABORATORY DATA: On admission, white count was 22.9, hemoglobin 13.5, hematocrit 39. His sodium is 132, potassium 3.3, creatinine 2.0. Albumin 3.3. PHYSICAL EXAMINATION GENERAL: He is currently alert and oriented, does not seem to be in acute distress. VITALS: Stable, afebrile. HEENT: Not icteric. NECK: Supple. CHEST: Clear bilaterally. COR: S1 and S2. No murmur. ABDOMEN: Soft. EXTREMITIES: He did have redness and swelling of his left leg involving the heel all the way to the knee. There is some edema. There is also husky and purplish discoloration of the skin anteriorly. IMPRESSION: Cellulitis of the leg in a patient with underlying lymphedema. Patient also has history of cellulitis before. Chronic kidney disease. Patient was started on cefepime and vancomycin. Will discontinue vancomycin and put him on daptomycin 6 mg/kg q.48 h. Will reduce his cefepime to 1 gram daily. Blood cultures still pending. Will get a central line. He is eager to go home. Will see if we can discharge him in a day or two depending on his clinical progress. Thank you for asking me to see this patient. Will follow with you. Thank you. Job#: [id number]
[2017-11-18] MEDS: SODIUM CHLORIDE 0.9% 1000ML 1,000 ML IV SCH ×2 (15:00→23:03)
[2017-11-18 16:07] VITALS: BP 121/66
--- NOTE | 2017-11-18 19:44 | Consultation ---
DATE OF CONSULTATION: November 18, 2017 RENAL CONSULT HISTORY OF PRESENT ILLNESS: A 77-year-old gentleman. History predominantly from patient, partly from chart. His is assisting him and reminding him of his medical conditions. He has had prior history of angina and a history of coronary artery disease, status post PCI and stenting times [address] De Jesus in [place]. History of hypertension. Denies any history of diabetes. He has had prior knee replacement, a laparoscopic gastric banding. Hypothyroidism. Peripheral neuropathy, unclear cause. Admitted with cellulitis of the left lower extremity. Denies any fever, chills, chest pain. Denies prior history of any kidney insufficiency or kidney stone disease. Laboratory test shows a white count of 16,000, hemoglobin 11.9. Sodium 140, potassium 4.1, bicarbonate 23, creatinine 1.66 with a globulin of 3.6, total protein 6.4. SOCIAL HISTORY: He does not smoke or drink. Is . FAMILY HISTORY: Significant for hypertension. PHYSICAL EXAMINATION: GENERAL: Awake, alert, lying supine. No apparent distress. VITALS: Blood pressure of 121/66, pulse rate 72, afebrile. Oxygen saturation 100%. HEAD AND NECK: Cornea clear. Oral mucosa dry. Neck veins flat. LUNGS: Relatively clear. HEART: S1 and S2 audible. ABDOMEN: Otherwise soft, nontender. LOWER EXTREMITY EXAMINATION: Left lower extremity shows brawny edema and discoloration of skin. I did not examine that tibial area. However, there was no ankle edema noted bilaterally. IMPRESSION/PLAN: Acute kidney injury in a gentleman who has hypertension, multiple comorbids. Has been on Plavix, thyroid medications, gabapentin. Currently on atorvastatin, docusate, metoprolol, aspirin, daptomycin. Also receiving IV normal saline at 75 mL an hour, which I will continue. Will order renal workup including kidney ultrasound, urinalysis, spot urine protein/creatinine ratio. He was on vancomycin 1 gram q.24, apparently now on q.12. Highly recommend to check patient's vancomycin peak and trough levels. Discussed with patient. All questions answered. Will see him first thing in the morning tomorrow. Job#: [id number] EV
[2017-11-18 20:00] VITALS: BP 100/67
[2017-11-18] MEDS ORDERED: DAPTOMYCIN 700 MG in SODIUM CHLORIDE 0.9% 100 ML IV SCH (20:00)
[2017-11-18] MEDS ORDERED: TAMSULOSIN HCL 0.4 MG CAP PO SCH (21:00)
[2017-11-18] MEDS: ASPIRIN 81 MG CHEW TAB PO SCH (21:30)
[2017-11-18] MEDS: ATORVASTATIN 20 MG TAB PO SCH (21:30)
[2017-11-18] MEDS ORDERED: PANTOPRAZOLE SOD 40 MG TABEC PO ONE (21:30)
[2017-11-18 22:21] LABS: BILIRUBIN,URINE NEGATIVE (NEGATIVE); CLARITY,URINE CLEAR (CLEAR); COLOR,URINE YELLOW (YELLOW); KETONES,URINE NEGATIVE (NEGATIVE); LEUKOCYTE ESTERASE ,URINE NEGATIVE (NEGATIVE); NITRITE,URINE NEGATIVE (NEGATIVE); PROTEIN,URINE DIPSTICK NEGATIVE (NEGATIVE); URINE UROBILINOGEN 1 mg/dL (0.2 - 1)
[2017-11-18 22:35] LABS: CREATININE,URINE RANDOM 63.44 mg/dL (63-166); TOTAL PROTEIN, URINE 10.3 mg/dL (1-14)
[2017-11-18 22:54] LABS: BACTERIA,URINE RARE /HPF; EPITHELIAL CELLS,URINE RARE /LPF; WBC,URINE (MAN) 0-5 /HPF (0-5)
[2017-11-19] VITALS: BP 106/73
[2017-11-19 00:21] VITALS: BP 100/67
[2017-11-19 04:00] VITALS: BP 106/56
[2017-11-19 06:46] LABS: BASOPHILS % 0.3 % (0.0-1.0); EOSINOPHILS # (AUTO) 0.3 (0.0-0.4); EOSINOPHILS % 2.8 % (0.0-6.0); HEMATOCRIT 36.5 % (38.2-49.6); HEMOGLOBIN 12.1 g/dL (14.0-18.0); LYMPHOCYTES # (AUTO) 1.4 (1.0-3.2); LYMPHOCYTES % 13.5 % (18.0-39.1); MEAN CORPUSCULAR HEMOGLOBIN 29.7 pg (28-32); MEAN CORPUSCULAR HGB CONC 33.2 g/dL (31-35); MEAN CORPUSCULAR VOLUME 89.7 fL (81-99); MONOCYTES # (AUTO) 0.5 (0.2-0.8); MONOCYTES % 4.5 % (4.4-11.3); PLATELET COUNT 120 x10e3/uL (140-360); RED BLOOD COUNT 4.07 x10e6/uL (4.3-5.7); RED CELL DISTRIBUTION WIDTH 14.5 % (11.7-14.4)
[2017-11-19 07:11] LABS: ALBUMIN 2.7 g/dL (3.5-5.0); ALBUMIN/GLOBULIN RATIO 0.7 (0.8-2.0); ANION GAP 12.6 mmol/L (8-16); CALCIUM 9.1 mg/dL (8.4-10.2); CHOL/HDL RATIO 2.7 (3.9-4.7); CREATININE, SERUM 1.42 mg/dL (0.72-1.25); POTASSIUM 3.6 mmol/L (3.5-5.1)
[2017-11-19] MEDS: DICYCLOMINE HCL 20 MG TAB PO SCH ×2 (07:30→11:30)
[2017-11-19 08:05] VITALS: BP 113/76
[2017-11-19 09:00] VITALS: BP 113/76
[2017-11-19] MEDS ORDERED: CEFEPIME HCL 1 GM VIAL IV SCH (09:00)
--- NOTE | 2017-11-19 10:35 | Diagnostic Imaging Report ---
PROCEDURE:US RETROPERITONEAL (KIDNEY). COMPARISON:None. INDICATIONS:WILLIE TECHNIQUE: Macedo scale and color Doppler ultrasound kidneys FINDINGS: Right: 9.2 x 5.2 x 4.8 cm. Cortical thickness 1.6 cm Left: 9.9 x 4.3 x 5.2 cm. Cortical thickness 1.4 cm The right kidney contains a 4.8 x 4.5 x 3.7 cm anechoic nodule at the superior pole with increased through-transmission in keeping with a cyst. No mural nodularity, calcification or septation. Mildly increased renal parenchymal echogenicity bilaterally. Kidneys are otherwise normal bilaterally. Survey views of the urinary bladder are normal. Patent ureters. Prostate volume: 28 mL CONCLUSION: 1. Mild increased renal echogenicity consistent with medical renal disease. No obstruction. 2. Simple right renal cyst. Dictated by: Clovis Lange M.D. on 11/19/2017 at 10:36 Electronically approved by: Clovis Lange M.D. on 11/19/2017 at 10:36
[2017-11-19] MEDS: CLOPIDOGREL BISULFATE 75 MG TAB PO SCH (11:31)
[2017-11-19] MEDS: DOCUSATE SODIUM 100 MG CAP PO SCH (11:31)
[2017-11-19] MEDS: LEVOTHYROXINE SODIUM 100 MCG TAB PO SCH (11:31)
[2017-11-19] MEDS: POLYETHYLENE GLYCOL 3350 17 GM PACK PO SCH (11:31)
[2017-11-19] MEDS: ASPIRIN 81 MG CHEW TAB PO SCH (11:31)
[2017-11-19] MEDS: GABAPENTIN 300 MG CAP PO SCH (11:31)
[2017-11-19] MEDS: METOPROLOL SUCCINATE 25 MG TAB XL PO SCH (11:32)
--- NOTE | 2017-11-20 07:09 | Diagnostic Imaging Report ---
Date and Time: 11/18/2017 Procedure: Central venous catheter placement collar folder operator: Dr. Dias Pre-operative diagnosis: Cellulitis, poor IV access Post-operative diagnosis: Cellulitis Conscious Sedation: None The patient's heart rate and pulse oximetry were continuously monitored by the interventional radiology nurse. Blood pressure was monitored at 5 minute intervals. Additional Medications: Lidocaine 1% for local anesthesia Fluoroscopy time: 0.3 minutes Frontal Air Kerma: 17.7 mGy Contrast used: None Estimated blood loss: Minimal Specimens: None Implants: 7 Malaysian, 16 cm triple-lumen central venous catheter Blood products administered: None Condition at completion of procedure: Stable Disposition: Returned to floor DISCUSSION: Informed consent was obtained and documented in the medical record after discussion of risks and benefits. The patient was placed in the supine position on the fluoroscopic table. Preliminary sonographic evaluation confirmed patency of the right internal jugular vein, evidenced by compressibility. The right cervical region was prepped and draped in the standard sterile fashion. 1% lidocaine was infiltrated into the skin and subcutaneous tissues for local anesthesia. Then under continuous sonographic guidance, an 18-gauge singlewall needle was used to access the right internal jugular vein. A permanent sonographic image was stored in the medical record. A 0.0 3 5-in. J-wire was advanced into the inferior vena cava under fluoroscopic guidance. The needle was removed over the wire and the tract was dilated. Then a 7 Malaysian 16 cm triple-lumen central venous catheter was advanced over the wire to full depth. The wire was removed and the catheter tip was positioned at the superior cavoatrial junction. Each lumen showed adequate bidirectional flow and was flushed with sterile saline. The catheter was secured to the skin with monofilament nylon suture and a sterile dressing was applied. The patient tolerated the procedure well without immediate complication. FINDINGS: Patent right internal jugular vein IMPRESSION: Successful placement of a 7 Malaysian, 16 cm triple-lumen central venous catheter by a right internal jugular approach. Signed by: Dr. Cesario Dias M.D. on 11/20/2017 7:06 AM
== END 2017-11-19 13:30 | disposition home or self-care (01) | DRG 603 ==
LOC: ER 13:21 → ERHOLD 17:02 → IMCU 17:27 → OBSVTOIN 11-18 11:38 → MED/SURG3 11-18 16:18
PROVIDERS: ADMIT Internal Medicine; ATTEND Internal Medicine
PROC: 02HV33Z Insertion of Infusion Device into Superior Vena Cava, Percutaneous Approach (ICD-10-PCS; principal; 2017-11-18)
PROC: B5181ZA Fluoroscopy of Superior Vena Cava using Low Osmolar Contrast, Guidance (ICD-10-PCS; 2017-11-18)
DX: L03.116 Cellulitis of left lower limb (principal); N17.9 Acute kidney failure, unspecified; N18.4 Chronic kidney disease, stage 4 (severe); E78.5 Hyperlipidemia, unspecified; E03.9 Hypothyroidism, unspecified; R59.1 Generalized enlarged lymph nodes; I12.9 Hypertensive chronic kidney disease with stage 1 through stage 4 chronic kidney disease, or unspecified chronic kidney disease; G62.9 Polyneuropathy, unspecified
CPT/HCPCS: 36415; 36556; 74470; 76770; 76937; 77001; 80053; 80061; 81001; 82570; 84156; 85025; 85610; 85730; 87040; 93971; 96361; 99284; C1751; G0378; J0692; J3370; J7030; J7050

== ENCOUNTER → 2021-07-06 | Day surgery (SDC) | payer MEDICARE ==
[2021-07-05 16:08] LABS: BASOPHILS % 0.3 % (0.0-1.0); EOSINOPHILS # (AUTO) 0.1 (0.0-0.4); EOSINOPHILS % 0.7 % (0.0-6.0); HEMATOCRIT 39.6 % (38.2-49.6); HEMOGLOBIN 12.4 g/dL (14.0-18.0); LYMPHOCYTES # (AUTO) 2.1 (1.0-3.2); LYMPHOCYTES % 13.9 % (18.0-39.1); MEAN CORPUSCULAR HEMOGLOBIN 31.2 pg (28-32); MEAN CORPUSCULAR HGB CONC 31.3 g/dL (31-35); MEAN CORPUSCULAR VOLUME 99.5 fL (81-99); MONOCYTES # (AUTO) 0.7 (0.2-0.8); MONOCYTES % 4.9 % (4.4-11.3); NEUTROPHILS # (AUTO) 11.8 (2.1-6.9); NEUTROPHILS % 79.7 % (38.7-80.0); PLATELET COUNT 137 x10e3/uL (140-360); RED BLOOD COUNT 3.98 x10e6/uL (4.3-5.7); RED CELL DISTRIBUTION WIDTH 14.1 % (11.7-14.4)
[~2021-07-06] MED LIST changes: +FLOMAX0.4 MG PO; +LIDOCAINE HCL 2% LOCAL INJ 5 ML SDV VIAL INJ ONE; +LYRICA75 MG PO; +MESALAMINE E0.375 GM PO; +PROPOFOL IV EMULSION 10 MG/ML 20 ML VIAL ONE; +PROTONIX20 MG PO; +SPIRONOLACTONE25 MG PO; -Z.0.ASPIRIN CHEW81 M; +Z.0.ASPIRIN CHEW81 M PO; -[UNRECOGNIZED DRUG - OTHER]; +[UNRECOGNIZED DRUG - OTHER] PO
[2021-07-06 10:55] VITALS: BP 127/89
== END | disposition home or self-care (01) ==
LOC: OR 07:17
PROVIDERS: ATTEND Internal Medicine Gastroenterology
DX: T18.198A Other foreign object in esophagus causing other injury, initial encounter (principal); K29.70 Gastritis, unspecified, without bleeding; K21.00 Gastro-esophageal reflux disease with esophagitis, without bleeding; Z98.84 Bariatric surgery status; G47.33 Obstructive sleep apnea (adult) (pediatric); I45.10 Unspecified right bundle-branch block; I10 Essential (primary) hypertension; I25.10 Atherosclerotic heart disease of native coronary artery without angina pectoris; N40.0 Benign prostatic hyperplasia without lower urinary tract symptoms; E03.9 Hypothyroidism, unspecified; I73.00 Raynaud's syndrome without gangrene; L40.9 Psoriasis, unspecified; X58.XXXA Exposure to other specified factors, initial encounter; Z01.810 Encounter for preprocedural cardiovascular examination; Z01.812 Encounter for preprocedural laboratory examination; Z20.822 Contact with and (suspected) exposure to COVID-19; Z79.02 Long term (current) use of antithrombotics/antiplatelets; Z79.84 Long term (current) use of oral hypoglycemic drugs; Z79.82 Long term (current) use of aspirin; Z79.899 Other long term (current) drug therapy; Z68.41 Body mass index [BMI] 40.0-44.9, adult; Z85.828 Personal history of other malignant neoplasm of skin; Z95.5 Presence of coronary angioplasty implant and graft
CPT/HCPCS: 36415; 43239; 43247; 85025; 88305; 93005; J2001; J2704; U0002; 43235